=== PATIENT | female | born 1990 | race Caucasian/White ===

== ENCOUNTER 2017-03-06 01:40 | Inpatient (IN) | payer OTHER ==
[2017-03-06] MEDS: DEXTROSE 5%-LACTATED RINGERS 1,000 ML IV SCH ×3 (02:20→06:35)
[2017-03-06 02:49] LABS: BASOPHIL 0.2 % (0-2.0); EOSINOPHIL 2.3 % (0-4.5); MCH 29.9 pg (25.7-33.7); MCHC 33.4 g/dl (32.0-36.0); MEAN CELL VOLUME 89.6 fl (80-96); MEAN PLT VOLUME 10.1 fl (7.5-11.1); NEUTROPHILS 73.3 % (42.8-82.8); PLATELET COUNT 161 K/MM3 (134-434); RDW 14.3 % (11.6-15.6); WHITE BLOOD COUNT 6.2 K/mm3 (4.0-10.0)
[2017-03-06 03:00] LABS: INR 1.05 (0.82-1.09); PROTHROMBIN TIME (PATIENT) 11.6 SEC (9.98-11.88)
[2017-03-06 03:03] LABS: ACTIVATED PTT 28.5 SECONDS (26.9-34.4)
[2017-03-06 03:10] LABS: ANION GAP 9 (8-16); CALCIUM 8.7 mg/dL (8.5-10.1); CO2 23 mmol/L (21-32); CREATININE 0.6 mg/dL (0.55-1.02); GLUCOSE,RANDOM 91 mg/dL (74-106)
[2017-03-06] MEDS ORDERED: PROMETHAZINE HCL 25 MG/1 ML VIAL IVPUSH ONE (04:03)
[2017-03-06] MEDS ORDERED: BUTORPHANOL TARTRATE 1 MG/ML VIAL IVPB ONE (04:03)
[2017-03-06] MEDS ORDERED: SODIUM PHOSPHATE/NA BIPHOS 133 ML ENEMA PR ONE (04:05)
[2017-03-06] MEDS ORDERED: DINOPROSTONE 10 MG VAGINAL SUPPOSITORY VG ONE (04:10)
--- NOTE | 2017-03-06 04:17 | HP ---
Past Medical History - Primary Care Physician PCP:: Valorie Mahoney - Admission Chief Complaint: 26 yrs h/f 40.6/7 weeks srom since 12.00 midnight , no c/ o pain History of Present Illness: PNC at , [facility] wt gain 15 lbs Work Up : A Pos, Rpr nr, Hbsag neg, Quantiferon neg, Rubella pos, Rpr nr, Hiv neg, Gbs neg, , 1 hr gtt 90. NT screen not done . Quad screen neg. MFM growth sono were done Last sono on 03/02/17 , Bpp 8/8, JOEL 16.43cm, EFW 7'14" History Source: Patient, Medical Record Limitations to Obtaining History: No Limitations - Past Medical History Cardiovascular: No: HTN, Murmur Pulmonary: No: Asthma, COPD Gastrointestinal: No: Gastritis, GERD Hepatobiliary: No: Hepatitis B Renal/: No: UTI ...: 1 ...Para: 0 ...EDC by Sono: 02/28/17 (40.6/7 Weeks by Sono ) Infectious Disease: No: AIDS, HIV, STD's Psych: No: Addictions, Anxiety, Bipolar, Depression Endocrine: No: Diabetes Mellitus, Hyperparathyroidism, Hyperthyroidism - Past Surgical History Past Surgical History: Yes: Appendectomy, Cholecystectomy Hx Myomectomy: No Hx Transabdominal Cerclage: No - Smoking History Smoking history: Never smoked - Alcohol/Substance Use Hx Alcohol Use: No History of Substance Use: reports: None Home Medications - Allergies Allergies/Adverse Reactions: Allergies Allergy/AdvReac Type Severity Reaction Status Date / Time No Known Allergies Allergy Verified 02/21/16 18:29 - Home Medications Home Medications: Ambulatory Orders Meclizine HCl [Antivert -] 25 mg PO TID #21 tablet 02/22/16 Physical Exam - Maternity Vital Signs: T98.0, Pulse 97, BP 108/73 Constitutional: Yes: Well Nourished, No Distress Eyes: Yes: WNL HENT: Yes: WNL, Normocephalic Neck: Yes: WNL Cardiovascular: Yes: WNL, Regular Rate and Rhythm Breast(s): Yes: WNL - Abdominal Exam/OB Fundal Height: 40 Number of Fetuses: Single Presentation: Vertex Contractions: No Monitor Mode: External Heart Rate (range): 130-140 Heart Rate Location: Midline Category: I Accelerations: Uniform Decelerations: None - Vaginal Exam/OB Vaginal Bleediing: No Speculum Exam: No Dilatation (cm): close Effacement (%): unefface Amniotic Membrane Status: Ruptured Nitrazine Test: Positive Amniotic Fluid: Yes: Clear Presentation: Vertex/Position Station: -4 - Physical Exam Musculoskeletal: Yes: WNL Extremities: Yes: WNL. No: Calf Tenderness Edema: Yes Edema: LLE: 1+, RLE: 1+ Integumentary: Yes: Tattoos Deep Tendon Reflex Grade: Normal +2 ...Motor Strength: WNL Psychiatric: Yes: WNL, Alert, Oriented - Labs Lab Results: CBC, BMP 03/06/17 02:30 03/06/17 02:30 Laboratory Tests 03/06/17 02:30 INR 1.05 PTT (Actin FS) 28.5 Problem List - Problems (1) Post term over 40 weeks Code(s): O48.0 - POST-TERM (2) SROM (spontaneous rupture of membranes) Code(s): [id number] - Assessment/Plan 26 yrs , 40.6/7 weeks, SROM , not in labor, Gbs neg Plan cervidil insertion at 4.10 AM done trial of labor for vag, del
[2017-03-06 04:44] VITALS: BMI 36.8
[2017-03-06] MEDS ORDERED: CITRIC ACID/SODIUM CITRATE 30 ML UNIT-DOSE CUP PO ONE (11:05)
--- NOTE | 2017-03-06 11:05 | PN ---
Progress Note, Labor Vaginal Exam #1 Labor Exam Date: 03/06/17 Labor Exam Time: 10:45 Heart Rate (range): 130 Dilatation: close Effacement (%): unefface Amniotic Membrane Status: Ruptured (light with particulate) Presentation: Vertex/Position Station: -3 Remarks: fhr cat-1 UC 2-4 min cervidil was expelled out spontaneously pt requests for c/section, she does not wait longer . Selected Entries 03/06/17 10:00 Temperature 98.2 F Pulse Rate 87 Blood Pressure 130/65 plan , preop for c/section awaiting OR availablity
[2017-03-06] MEDS ORDERED: ELECTROLYTE-148 SOLN 1,000 ML IV SCH (11:15)
--- NOTE | 2017-03-06 13:06 | PN ---
Progress Note (short form) - Note Progress Note: Attended C/s at the request of OB Mom 26yrs old with nl labs Was admitted for induction for trial of Vaginal del AROM at 10.30 revealed MSAF- with no progress of dil. delivered by C/S - cried soon after suctioned/ dried cord 3V 9/9 PE: Infant alert active, pink well perfused S1-S2 nl no heart murmur B/L good air entry No organomegaly, Nl female Genitalia, FROM< good tone and activity Term female C/S for MSAF- Failure to progress- Mom wishes RNBC Watch for resp distress Encourage BF/ Bonding
[2017-03-06] MEDS ORDERED: ONDANSETRON 4 MG/2 ML VIAL IVPUSH PRN (13:30)
[2017-03-06] MEDS ORDERED: SENNOSIDES/DOCUSATE COMBO (SENNA PLUS) TABLET (UD) PO PRN (13:37)
[2017-03-06] MEDS ORDERED: METHYLERGONOVINE MALEATE 0.2 MG/1 ML AMP IM PRN (13:37)
--- NOTE | 2017-03-06 13:46 | PN ---
Delivery - Delivery Section: Primary, Low Flap Transverse (Indication 40.6 weeks, meconnium , fetus at risk) Type of Anesthesia: Spinal Episiotomy/Laceration: None EBL (cc): 600 (mims output 100 ml indy color ) Delivery, Single - Stages of Labor Date 1st Stage Initiatied: 03/06/17 Date of Delivery: 03/06/17 Time of Delivery: 12:51 Time Placenta Delivered: 12:52 Placenta: Yes: Manual Removal, Uterine Exploration - Condition of Infant Police Judge/Burial Vault Setter Present: Yes Name: Alexander Christopher Gender: Female Weight: 8 lb 4 oz Position: Left, OT Total Hours ROM (Hrs/Mins): 12hrs 52min - 1 Minute Total Score: 9 5 Minutes Total Score: 9 - Feeding Plan Initial Plan: Exclusive throughout hospitalization Remarks - Remarks Remarks: 26 yrs , 40 .6 weeks admitted for srom not inlabor , GBS neg PNC at 2, [facility] Cervidil inserted for labor induction meconium stained liquor, cervidil expelled, in 7 hrs , pt having uc irregular, cx closed, declined to continue labor induction Intraop course uneventful
[2017-03-06 13:50] LABS: ARTERIAL BLOOD GAS pH 7.26 (7.35-7.45)
[2017-03-06 13:51] LABS: ARTERIAL BLD GAS O2 SATURATION 24.3 % (90-98.9); ARTERIAL BLOOD GAS BASE EXCESS -2.8 meq/l (-2-2); ARTERIAL BLOOD GAS HCO3 24.9 meq/L (22-26); LPM/O2% 21%; PT. ON O2? n
[2017-03-06 13:54] LABS: TYPE OF O2 r/a
--- NOTE | 2017-03-06 13:55 | OP ---
Operative Note - Note: Operative Date: 03/06/17 Pre-Operative Diagnosis: 40.6/7 weeks , SROM , Meconium stained , fetus at risk , requests c/section Operation: Primary LFTC/section Findings: 12.51 PM baby girl, 9/9 , wt 8'4" ,LOT , light meconium stained liquor, Dr Jarquin sports complex attendant present in the room Both tubes & ovaries normal Surgeon: Valorie Mahoney Explosive Ordnance Specialist: Kota Mello Anesthesiologist/GRADES 1 THROUGH 5 TEACHER: Chacho Bello Anesthesia: Spinal Specimens Removed: placenta. cord segment for cord gas. cord blood Estimated Blood Loss (mls): 600 Drains, Volume Out (mls): 100 (mims output anber color ) Fluid Volume Replaced (mls): 1,500 (iv Ancef 1 gm prior to incision given ) Operative Report Dictated: Yes
[2017-03-06 13:56] LABS: ARTERIAL BLOOD GAS PO2 18.3 mmHg (80-100)
[2017-03-06 13:58] LABS: ARTERIAL BLOOD GAS pH 7.31 (7.35-7.45)
[2017-03-06 13:59] LABS: ARTERIAL BLOOD GAS BASE EXCESS -3.2 meq/l (-2-2); ARTERIAL BLOOD GAS HCO3 22.9 meq/L (22-26)
[2017-03-06 14:00] LABS: LPM/O2% 21%; PT. ON O2? no; TYPE OF O2 room air
[2017-03-06] MEDS ORDERED: CEFAZOLIN (PRE-DOCKED) 50 ML IVPB SCH (14:00)
[2017-03-06] MEDS ORDERED: CEFAZOLIN 1 GM/D5W 50 ML IVPB SCH (14:00)
[2017-03-06 14:01] LABS: ARTERIAL BLOOD GAS PO2 22.2 mmHg (80-100)
[2017-03-06 14:02] LABS: ARTERIAL BLD GAS O2 SATURATION 38.8 % (90-98.9)
[2017-03-06] MEDS: D5W-LR W/ 20 UNITS OXYTOCIN 1,000 ML IV SCH ×2 (15:09→20:53)
--- NOTE | 2017-03-06 15:09 | OP ---
DATE OF OPERATION: 03/06/2017 PREOPERATIVE DIAGNOSIS: Forty and 6/7 weeks with spontaneous rupture of membranes, meconium stained fluid . The patient requested section. OPERATION PERFORMED: Primary low-flap transverse section. SURGEON: Valorie Romano MD TERRAZZO LABORER: Kota Booker PA ANESTHESIOLOGIST: Dr. Artis. ANESTHESIA: Spinal. FINDINGS: This is a 26-year-old 1, para 0 presenting with spontaneous rupture of membrane since 12 midnight. Cervix was closed. Cervidil was placed a 4 a.m. until 11 a.m. Cervidil was expelled spontaneously and she has been leaking meconium stain fluid since 7 a.m. The heart rate tracing was grade 1. The patient had contractions between 3 to 5 minutes and irregular. Cervix was still closed posterior and she did not want to continue induction and she refused to continue induction of labor and she requested section. PROCEDURE IN DETAIL: Abdomen was shaved and prepped. Talbot catheter was placed. She was taken to the operating room table. Spinal anesthesia was given. She was placed in supine position. Abdomen was painted and draped in usual manner. Pfannenstiel incision was made. The skin, subcutaneous tissue, anterior rectus sheath were incised transversely. Bleeding points were clamped and cauterized. Rectus muscle was from the rectus sheath. Parietal peritoneum was opened vertically. Bladder peritoneum was incised transversely. Amniotic fluid was meconium stained. Baby girl was delivered from ROT position at 12:51 p.m. was 9 and 9. Cord was clamped, cut and cord segment was sent for cord blood gas and cord blood was collected. The baby was handed over to the drop clipper Dr. Christopher. Baby weight was 8 pounds 4 ounces. Placenta was completely removed with the membranes. Uterine cavity was cleaned. Then the uterine incision was closed in 2 layers with continuous locking suture of Biosyn 0. Second layer was closed with Biosyn 0 intermittent locking sutures were taken. Hemostasis was verified in the lower uterine segment incision and the bladder peritoneum was closed with Biosyn 0 suture. Both tubes and ovaries were normal. Sponge, instrument and needle count was correct. Closure of the abdomen was done. Parietal peritoneum was closed 0 Vicryl suture, continuous sutures were taken and muscles were approximated together with an 0 Vicryl interrupted suture. Hemostasis was checked. Anterior rectus sheath underneath flap hemostasis was checked. Anterior rectus sheath was closed 0 Vicryl continuous suture. Subcutaneous tissue hemostasis was noted and subcutaneous tissue was approximated with interrupted sutures and the skin was approximated with larisa. Pressure dressing was placed. Blood clots were remove from the vagina. Urine output was 100 mL intraoperatively. She received 1 g of IV Ancef prior to the incision. ESTIMATED BLOOD LOSS: 600 mL Corrie [id number] MTDD
[2017-03-06] MEDS: IBUPROFEN 800 MG/8 ML IJ IVPB PRN (15:35)
[2017-03-06] MEDS: CEFAZOLIN (PRE-DOCKED) 50 ML IVPB SCH (20:51)
[2017-03-07] MEDS: IBUPROFEN 800 MG/8 ML IJ IVPB PRN (03:45)
[2017-03-07] MEDS: CEFAZOLIN (PRE-DOCKED) 50 ML IVPB SCH (05:42)
[2017-03-07] MEDS: DEXTROSE 5%-LACTATED RINGERS 1,000 ML IV SCH (05:42)
[2017-03-07 06:59] LABS: BASOPHIL 0.3 % (0-2.0); MCH 29.7 pg (25.7-33.7); MEAN PLT VOLUME 9.8 fl (7.5-11.1); NEUTROPHILS 75.8 % (42.8-82.8); PLATELET COUNT 139 K/MM3 (134-434); WHITE BLOOD COUNT 6.1 K/mm3 (4.0-10.0)
--- NOTE | 2017-03-07 07:53 | PN ---
Post Progress Note - Subjective Subjective: no c/o pain not voided since mims is taken out Post Day: 1 Type of Delivery: Primary C/S Vital Signs: Vital Signs Temperature 98.0 F 03/07/17 05:35 Pulse Rate 92 H 03/07/17 05:35 Respiratory Rate 20 03/07/17 05:51 Blood Pressure 112/67 03/07/17 05:35 O2 Sat by Pulse Oximetry (%) 100 03/06/17 15:15 Breast Exam: Yes: Soft, Other (plans to bF ). No: Engorged Uterus: Yes: Fundus Firm, Fundus below umbilicus Abdomen/GI: Yes: Abdomen soft, Tolerating PO (clear fluid ). No: Abdominal Distention (bs active ) Lochia: Yes: Rubra Lochia, amount: Moderate Extremities: Yes: Calves non-tender Perineum: Yes: Intact Activity: Ambulating - Labs Labs: CBC WBC 6.1 K/mm3 (4.0-10.0) 03/07/17 06:25 RBC 3.49 M/mm3 (3.60-5.2) L 03/07/17 06:25 Hgb 10.4 GM/dL (10.7-15.3) L 03/07/17 06:25 Hct 31.4 % (32.4-45.2) L 03/07/17 06:25 MCV 90.0 fl (80-96) 03/07/17 06:25 MCH 29.7 pg (25.7-33.7) 03/07/17 06:25 MCHC 33.0 g/dl (32.0-36.0) 03/07/17 06:25 RDW 14.0 % (11.6-15.6) 03/07/17 06:25 Plt Count 139 K/MM3 (134-434) 03/07/17 06:25 MPV 9.8 fl (7.5-11.1) 03/07/17 06:25 Neutrophils % 75.8 % (42.8-82.8) 03/07/17 06:25 Lymphocytes % 15.8 % (8-40) 03/07/17 06:25 Monocytes % 6.1 % (3.8-10.2) 03/07/17 06:25 Eosinophils % 2.0 % (0-4.5) 03/07/17 06:25 Basophils % 0.3 % (0-2.0) 03/07/17 06:25 Other Findings, Remarks: RS - CTA i.o adequate Problem List - Problems (1) Post term over 40 weeks Code(s): O48.0 - POST-TERM (2) SROM (spontaneous rupture of membranes) Code(s): [id number] - Assessment/Plan stable plan cbc today pending encourage ambulation encourage deep breathing
[2017-03-07] MEDS: PRENATAL VITAMINS W/ FOLIC ACID TABLET (FP) PO SCH (09:15)
[2017-03-07] MEDS: ENOXAPARIN NA (PORCINE) 40 MG/0.4 ML DISP.SYRIN SQ SCH (09:15)
[2017-03-07] MEDS: ACETAMINOPHEN 325 MG TABLET (FP) PO PRN ×2 (13:23→17:28)
[2017-03-07] MEDS: SIMETHICONE 80 MG TAB.CHEW (FP) PO PRN ×3 (13:23→22:09)
[2017-03-07] MEDS: oxyCODONE HCL 5 MG TABLET PO PRN ×3 (13:23→22:10)
[2017-03-07] MEDS ORDERED: BISACODYL 10 MG SUPP.RECT RC PRN (13:37)
[2017-03-07] MEDS: D5W-LR W/ 20 UNITS OXYTOCIN 1,000 ML IV SCH (15:42)
[2017-03-07] MEDS: FERROUS SO4 325 MG TABLET (FP) PO SCH (22:06)
[2017-03-07] MEDS: IBUPROFEN 600 MG TABLET (FP) PO PRN (22:11)
--- NOTE | 2017-03-08 00:24 | PN ---
Progress Note, Physician Chief Complaint: Pt. ambulating and voiding, pain controlled, no MURPHY. No anesthesia complaints. - Current Medication List Current Medications: Active Medications Acetaminophen (Tylenol -) 650 mg PO Q4H PRN PRN Reason: FEVER OR PAIN Last Admin: 03/07/17 17:28 Dose: 650 mg Bisacodyl (Dulcolax Suppository -) 10 mg RC PRN PRN PRN Reason: CONSTIPATION Diphenhydramine HCl (Benadryl Injection -) 25 mg IVPUSH Q4H PRN PRN Reason: itching Enoxaparin Sodium (Lovenox -) 40 mg SQ DAILY [facility] Last Admin: 03/07/17 09:15 Dose: 40 mg Ferrous Sulfate (Feosol -) 325 mg PO BID [facility] Last Admin: 03/07/17 22:06 Dose: 325 mg Dextrose/Lactated Ringer's (D5-Lr -) 1,000 mls @ 125 mls/hr IV ASDIR [facility] Last Admin: 03/07/17 05:42 Dose: 125 mls/hr Dextrose/Lactated Ringer's (Pitocin 20 Units In D5-Lr -) 1,000 mls @ 125 mls/ hr IV ASDIR [facility] Last Admin: 03/07/17 15:42 Dose: Not Given Ibuprofen (Motrin -) 600 mg PO Q4H PRN PRN Reason: PAIN Last Admin: 03/07/17 22:11 Dose: 600 mg Methylergonovine Maleate (Methergine Injection -) 0.2 mg IM Q4H PRN PRN Reason: Excessive Bleeding (L&D) Oxycodone HCl (Roxicodone -) 5 mg PO Q4H PRN PRN Reason: PAIN LEVEL 1-5 Last Admin: 03/07/17 22:10 Dose: 5 mg Oxycodone HCl (Roxicodone -) 10 mg PO Q4H PRN PRN Reason: PAIN LEVEL 6-10 Last Admin: 03/07/17 17:28 Dose: 10 mg Multivit/Folic Acid/Iron ( Vitamins (Sjr) -) 1 tab PO DAILY [facility] Last Admin: 03/07/17 09:15 Dose: 1 tab Senna/Docusate Sodium (Pericolace -) 2 tablet PO HS PRN PRN Reason: CONSTIPATION Simethicone (Mylicon -) 80 mg PO Q4H PRN PRN Reason: GAS Last Admin: 03/07/17 22:09 Dose: 80 mg - Objective Vital Signs: Vital Signs Temperature 99.4 F 03/07/17 21:47 Pulse Rate 108 H 03/07/17 21:47 Respiratory Rate 20 03/07/17 21:47 Blood Pressure 129/80 03/07/17 21:47 O2 Sat by Pulse Oximetry (%) 100 03/06/17 15:15 Constitutional: Yes: Well Nourished, No Distress, Calm Musculoskeletal: Yes: WNL Neurological: Yes: WNL, Alert, Oriented ...Motor Strength: WNL Labs: CBC, BMP 03/07/17 06:25 03/06/17 02:30 INR, PTT INR 1.05 (0.82-1.09) 03/06/17 02:30 Assessment/Plan POD#1 s/p under spinal with duramorph. Doing well. D/C from anesthesia care.
--- NOTE | 2017-03-08 09:32 | PN ---
Post Progress Note - Subjective Subjective: no comlains painscale 6-03/09 Post Day: 2 Type of Delivery: Primary C/S Vital Signs: Vital Signs Temperature 99.4 F 03/07/17 21:47 Pulse Rate 108 H 03/07/17 21:47 Respiratory Rate 20 03/07/17 21:47 Blood Pressure 129/80 03/07/17 21:47 O2 Sat by Pulse Oximetry (%) 100 03/06/17 15:15 Breast Exam: Yes: Soft, Other (BF ). No: Engorged Uterus: Yes: Fundus Firm, Fundus below umbilicus, Non-tender Incision: Yes: Dressing dry and intact (to be changed ). No: Redness, Oozing Abdomen/GI: Yes: Abdomen soft, Passing flatus (bmdone ), Tolerating PO (diet ). No: Abdominal Distention, Tender Lochia: Yes: Rubra Lochia, amount: Moderate Extremities: Yes: Calves non-tender Perineum: Yes: Intact Activity: Ambulating - Labs Labs: CBC WBC 6.1 K/mm3 (4.0-10.0) 03/07/17 06:25 RBC 3.49 M/mm3 (3.60-5.2) L 03/07/17 06:25 Hgb 10.4 GM/dL (10.7-15.3) L 03/07/17 06:25 Hct 31.4 % (32.4-45.2) L 03/07/17 06:25 MCV 90.0 fl (80-96) 03/07/17 06:25 MCH 29.7 pg (25.7-33.7) 03/07/17 06:25 MCHC 33.0 g/dl (32.0-36.0) 03/07/17 06:25 RDW 14.0 % (11.6-15.6) 03/07/17 06:25 Plt Count 139 K/MM3 (134-434) 03/07/17 06:25 MPV 9.8 fl (7.5-11.1) 03/07/17 06:25 Neutrophils % 75.8 % (42.8-82.8) 03/07/17 06:25 Lymphocytes % 15.8 % (8-40) 03/07/17 06:25 Monocytes % 6.1 % (3.8-10.2) 03/07/17 06:25 Eosinophils % 2.0 % (0-4.5) 03/07/17 06:25 Basophils % 0.3 % (0-2.0) 03/07/17 06:25 Problem List - Problems (1) Post term over 40 weeks Code(s): O48.0 - POST-TERM (2) SROM (spontaneous rupture of membranes) Code(s): XHI1282 - Assessment/Plan stable plan ct po care
[2017-03-08] MEDS: PRENATAL VITAMINS W/ FOLIC ACID TABLET (FP) PO SCH (10:27)
[2017-03-08] MEDS: FERROUS SO4 325 MG TABLET (FP) PO SCH ×2 (10:27→21:14)
[2017-03-08] MEDS: SIMETHICONE 80 MG TAB.CHEW (FP) PO PRN ×4 (10:27→23:31)
[2017-03-08] MEDS: ACETAMINOPHEN 325 MG TABLET (FP) PO PRN ×4 (10:28→23:31)
[2017-03-08] MEDS: oxyCODONE HCL 5 MG TABLET PO PRN ×4 (10:28→23:31)
[2017-03-08] MEDS: ENOXAPARIN NA (PORCINE) 40 MG/0.4 ML DISP.SYRIN SQ SCH (10:30)
[2017-03-09] MEDS: oxyCODONE HCL 5 MG TABLET PO PRN ×3 (07:40→17:04)
[2017-03-09 08:16] LABS: BASOPHIL 0.5 % (0-2.0); EOSINOPHIL 4.7 % (0-4.5); MCH 30.8 pg (25.7-33.7); MCHC 34.2 g/dl (32.0-36.0); MEAN CELL VOLUME 90.2 fl (80-96); MEAN PLT VOLUME 9.3 fl (7.5-11.1); NEUTROPHILS 61.8 % (42.8-82.8); PLATELET COUNT 149 K/MM3 (134-434); RDW 14.4 % (11.6-15.6); WHITE BLOOD COUNT 4.9 K/mm3 (4.0-10.0)
--- NOTE | 2017-03-09 09:13 | DS ---
Physical Exam-ASSISTANT UNIT FORESTER Vital Signs: Vital Signs Temperature 98.0 F 03/08/17 21:13 Pulse Rate 94 H 03/08/17 21:13 Respiratory Rate 20 03/08/17 21:13 Blood Pressure 127/80 03/08/17 21:13 O2 Sat by Pulse Oximetry (%) 100 03/06/17 15:15 Constitutional: Yes: Well Nourished Eyes: Yes: WNL HENT: Yes: WNL, Normocephalic Neck: Yes: WNL Cardiovascular: Yes: WNL, Regular Rate and Rhythm Respiratory: Yes: WNL Gastrointestinal: Yes: WNL, Normal Bowel Sounds, Soft ...Rectal Exam: Yes: WNL Renal/: Yes: WNL, Other (voiding without difficulty) Pelvis: Yes: WNL External Genitalia: Yes: Normal ....Post : Yes: Uterus firm, Uterus non-tender, Moderate lochia rubra Breast(s): Yes: WNL, Left (BF) Musculoskeletal: Yes: WNL Extremities: Yes: WNL. No: Calf Tenderness Edema: Yes Edema: LLE: 1+, RLE: 1+ Integumentary: Yes: Tattoos Wound/Incision: Yes: Clean/Dry, Well Approximated, Heriberto Intact (heriberto removed 03/10/17), Steri Strips (applied 03/10/17 wound edges well approximate d) , Open to air. No: Bleeding, Excoriated Neurological: Yes: WNL, Alert, Oriented ...Motor Strength: WNL Psychiatric: Yes: WNL, Alert, Oriented Labs: CBC, BMP 03/09/17 06:30 03/06/17 02:30 Delivery - Delivery Section: Primary, Low Flap Transverse (Indication 40.6 weeks, meconnium , fetus at risk) Type of Anesthesia: Spinal Episiotomy/Laceration: None EBL (cc): 600 (mims output 100 ml indy color ) Delivery, Single - Stages of Labor Date 1st Stage Initiatied: 03/06/17 Date of Delivery: 03/06/17 Time of Delivery: 12:51 Time Placenta Delivered: 12:52 Placenta: Yes: Manual Removal, Uterine Exploration - Condition of Cosmetology Instructor/Truck Bench Mechanic Present: Yes Name: Alexander Christopher Gender: Female Weight: 8 lb 4 oz Position: Left, OT Total Hours ROM (Hrs/Mins): 12hrs 52min - 1 Minute Total Score: 9 5 Minutes Total Score: 9 - [place] Feeding Plan Initial Plan: Exclusive throughout hospitalization Remarks - Remarks Remarks: 26 yrs , 40 .6 weeks admitted for srom not inlabor , GBS neg PNC at , [facility] Cervidil inserted for labor induction meconium stained liquor, cervidil expelled, in 7 hrs , pt having uc irregular, cx closed, declined to continue labor induction Intraop course uneventful . post op course unevntful will remove heriberto on 03/10/17 will discharge on 03/10/17 Discharge Summary Reason For Visit: LABOR ADMIT Current Active Problems At risk for distress (Acute) Delivery by emergency section (Acute) Meconium in amniotic fluid affecting management of mother, delivered (Acute) Post term over 40 weeks (Acute) SROM (spontaneous rupture of membranes) (Acute) Condition: Stable - Instructions Diet, Activity, Other Instructions: Post Instructions DIET: Continue good diet high in protein, calcium, and iron rich foods. Drink at least eight (8) glasses of water daily in addition to other fluids. ct Regular diet MEDICATIONS: Continue vitamins and iron as previously directed. Motrin and Tylenol may be taken for minor discomfort. ACTIVITY: Mild to moderate exercise may be started in two (2) weeks. Take frequent rest periods. Resume normal activity after six (6) week check up. WOUND CARE OF OPERATIVE SITE: Continue use of perineal bottle until vaginal discharge stops. Keep area clean. Shower daily. Keep abdominal wound dry. Report any drainage or redness to physician. Tub baths, tampons and douches are not permitted for [address] Breast feeding & or Bottle feeding BREAST CARE: (For those that are not ): If engorgement occurs: Wear tight fitting bra. Take Tylenol or Motrin for pain. Apply cold packs (ice in bags to each breast ) FAMILY PLANNING: There are many control alternatives to pursue and they should be discussed at your first office visit. You may resume sexual activity after your six (6) week check up. (Remember, breast feeding is not a contraceptive) NEXT PHYSICIAN APPOINTMENT: Be certain to call for a one (1) week appointment, unless otherwise directed. RTC for wound check Call Clinic or got to Emergency Dept if you have any of the following: Heavy vaginal bleeding Painful urination Leg pain Unusual odor noted to vaginal bleeding High fever Red streaking noted on breast HRH: [phone] Referrals: Valorie Mahoney MD [Staff Physician] - Disposition: HOME - Home Medications Comprehensive Discharge Medication List: Ambulatory Orders Meclizine HCl [Antivert -] 25 mg PO TID #21 tablet 02/22/16 Acetaminophen [Tylenol .Regular Strength -] 650 mg PO Q4H PRN #0 tablet Ferrous Sulfate [Feosol] 325 mg PO BID #60 tab 03/08/17 Ibuprofen [Motrin -] 600 mg PO Q4H PRN #30 tablet 03/08/17 Vitamins (Sjr) - 1 tab PO DAILY tablet 03/08/17
[2017-03-09] MEDS: FERROUS SO4 325 MG TABLET (FP) PO SCH ×2 (10:13→22:00)
[2017-03-09] MEDS: ENOXAPARIN NA (PORCINE) 40 MG/0.4 ML DISP.SYRIN SQ SCH (10:13)
[2017-03-09] MEDS: PRENATAL VITAMINS W/ FOLIC ACID TABLET (FP) PO SCH (10:13)
[2017-03-09] MEDS: SIMETHICONE 80 MG TAB.CHEW (FP) PO PRN ×3 (11:23→21:55)
[2017-03-09] MEDS: ACETAMINOPHEN 325 MG TABLET (FP) PO PRN ×2 (11:23→17:04)
[2017-03-09] MEDS: IBUPROFEN 600 MG TABLET (FP) PO PRN ×3 (11:23→21:53)
[2017-03-10] MEDS: IBUPROFEN 600 MG TABLET (FP) PO PRN (06:21)
[2017-03-10] MEDS: SIMETHICONE 80 MG TAB.CHEW (FP) PO PRN (06:23)
--- NOTE | 2017-03-10 08:55 | PN ---
Post Progress Note - Subjective Subjective: 26 yo Para 1 status post , seen and evaluated. Doing well. She's ready to be discharge. Type of Delivery: Primary C/S Vital Signs: Vital Signs Temperature 97.6 F 03/09/17 22:00 Pulse Rate 79 03/09/17 22:00 Respiratory Rate 20 03/09/17 22:00 Blood Pressure 118/66 03/09/17 22:00 O2 Sat by Pulse Oximetry (%) 100 03/09/17 21:00 Uterus: Yes: Fundus Firm Incision: Yes: Other (Heriberto removed) Abdomen/GI: Yes: Abdomen soft, Tolerating PO Lochia: Yes: Rubra Lochia, amount: Small Extremities: Yes: Calves non-tender Perineum: Yes: Intact Activity: Ambulating - Labs Labs: CBC WBC 4.9 K/mm3 (4.0-10.0) 03/09/17 06:30 RBC 3.36 M/mm3 (3.60-5.2) L 03/09/17 06:30 Hgb 10.4 GM/dL (10.7-15.3) L 03/09/17 06:30 Hct 30.3 % (32.4-45.2) L 03/09/17 06:30 MCV 90.2 fl (80-96) 03/09/17 06:30 MCH 30.8 pg (25.7-33.7) 03/09/17 06:30 MCHC 34.2 g/dl (32.0-36.0) 03/09/17 06:30 RDW 14.4 % (11.6-15.6) 03/09/17 06:30 Plt Count 149 K/MM3 (134-434) 03/09/17 06:30 MPV 9.3 fl (7.5-11.1) 03/09/17 06:30 Neutrophils % 61.8 % (42.8-82.8) 03/09/17 06:30 Lymphocytes % 25.2 % (8-40) D 03/09/17 06:30 Monocytes % 7.8 % (3.8-10.2) 03/09/17 06:30 Eosinophils % 4.7 % (0-4.5) H D 03/09/17 06:30 Basophils % 0.5 % (0-2.0) 03/09/17 06:30 Assessment/Plan Status post primary Stable D/C Home
[2017-03-10] MEDS: PRENATAL VITAMINS W/ FOLIC ACID TABLET (FP) PO SCH (10:12)
[2017-03-10] MEDS: ENOXAPARIN NA (PORCINE) 40 MG/0.4 ML DISP.SYRIN SQ SCH (10:12)
[2017-03-10] MEDS: FERROUS SO4 325 MG TABLET (FP) PO SCH (10:12)
[2017-03-10 13:31] VITALS: BP 124/75; PULSE 85; TEMP 98.4
--- NOTE | 2017-03-12 14:23 | PATH ---
Surgical Pathology Report Patient Name: EULALIO OAKES [facility]. Rec. #: [id number] /Age/Gender: 1990 (Age: 26) / F Account: [id number] Location: [facility] OBS/APPLICATIONS SPECIALIST Taken: 03/06/2017 Received: 03/09/2017 Reported: 03/12/2017 Physicians: Valorie Mahoney M.D. Specimen(s) Received PLACENTA Clinical History 40.6 weeks' gestation with ruptured membranes, no dilatation Final Diagnosis PLACENTA, DELIVERY: FOCALLY DISRUPTED THIRD TRIMESTER PLACENTA WITH SUBCHORIONIC FIBRIN DEPOSITION WITH ASSOCIATED CALCIFICATION, THREE VESSEL UMBILICAL CORD AND MECONIUM HISTIOCYTOSIS OF PLACENTAL MEMBRANES. Electronically Signed Tl Garcia M.D. Gross Description The specimen is received fresh labeled placenta and is a 466 gram, 17.5 x 16.0 x 2.6 cm. placenta with attached membranes and umbilical cord. The attached membranes are lee, translucent with focal opacities and insert marginally. The umbilical cord measures 21 cm. in length and averages 1.1 cm. in diameter. The cord inserts eccentrically, 2.5 cm. to the nearest margin. No true knots or strictures are identified. Cut surface of the umbilical cord reveals 3 vessels. The surface is baumann green, meconium stained with moderate fibrin deposition and appropriate caliber vessels. The maternal surface is red-brown with focal defects. Sectioning reveals red-brown, spongy parenchyma. No lesions are identified. Personal Lines Account Manager sections are submitted in three cassettes as follows: 1- membrane rolls and umbilical cord; 2-3- full thickness sections of placenta. 03/11/201703/11/2017
== END 2017-03-10 13:10 | disposition home or self-care (01) | DRG 540 ==
LOC: JLDR 01:40 → J3W 15:16
PROVIDERS: ADMIT Obstetrics & Gynecology; ATTEND Obstetrics & Gynecology
PROC: 10D00Z1 Extraction of Products of Conception, Low, Open Approach (ICD-10-PCS; principal; 2017-03-06)
PROC: 3E0P7GC Introduction of Other Therapeutic Substance into Female Reproductive, Via Natural or Artificial Opening (ICD-10-PCS; 2017-03-06)
DX: O48.0 Post-term pregnancy (principal); Z3A.40 40 weeks gestation of pregnancy; Z37.0 Single live birth
CPT/HCPCS: 36415; 36600; 80048; 82803; 85025; 85610; 85730; 86593; 86850; 86900; 86901; 88307-TC

== ENCOUNTER 2019-02-26 22:07 | Emergency (ER) | payer OTHER ==
[2019-02-26 22:16] VITALS: BP 118/78; PULSE 88; TEMP 98; BMI 39.4
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
[2019-02-26] MEDS ORDERED: KETOROLAC TROMETHAMINE 60 MG/2 ML VIAL IM ONE (22:40)
[2019-02-26] MEDS ORDERED: METHOCARBAMOL 500 MG TABLET PO ONE (22:40)
[2019-02-26] MEDS ORDERED: KETOROLAC TROMETHAMINE 60 MG/2 ML VIAL ONE (22:41)
[2019-02-26] MEDS ORDERED: METHOCARBAMOL 500 MG TABLET ONE (22:42)
== END 2019-02-26 23:12 | disposition home or self-care (01) ==
LOC: JERFT 22:07 → JER 22:07 → JERFT 23:12
PROC: 3E0233Z Introduction of Anti-inflammatory into Muscle, Percutaneous Approach (ICD-10-PCS; principal; 2019-02-26)
DX: M25.529 Pain in unspecified elbow (principal); M54.5 Low back pain; S13.4XXA Sprain of ligaments of cervical spine, initial encounter; V43.52XA Car driver injured in collision with other type car in traffic accident, initial encounter; Y92.411 Interstate highway as the place of occurrence of the external cause; Y93.89 Activity, other specified; Y99.8 Other external cause status
CPT/HCPCS: 72050-TC-FY; 72100-TC-FY; 99281-25

== ENCOUNTER → 2020-06-04 | Day surgery (SDC) | payer OTHER ==
--- OUTSIDE RECORDS SUMMARY | 2020-06-04 12:01 | XMS ---
:1990 [facility] Name Relationship Address Phone JAQUELINE Unavailable Unavailable Unavailable SEARS Unavailable [place] [address] [place] [address] [place] Unavailable [address] [phone] [place] [address] THERESA OAKES MOTHER [address] [place] [address] Re-disclosure Warning The records that you are about to access may contain information from federally- assisted alcohol or drug abuse programs. If such information is present, then the following federally mandated warning applies: This information has been disclosed to you from records protected by federal confidentiality rules (42 CFR part 2). The federal rules prohibit you from making any further disclosure of this information unless further disclosure is expressly permitted by the written consent of the person to whom it pertains or as otherwise permitted by 42 CFR part 2. A general authorization for the release of medical or other information is NOT sufficient for this purpose. The Federal rules restrict any use of the information to criminally investigate or prosecute any alcohol or drug abuse patient.The records that you are about to access may contain highly sensitive health information, the redisclosure of which is protected by Article 27-F of the [facility] Public Health law. If you continue you may haveaccess to information: Regarding HIV / AIDS; Provided by facilities licensed or operated by the [facility] Office of Mental Health; or Provided by the [facility] Office for People With Developmental Disabilities. If such information is present, then the following [facility] mandated warning applies: This information has been disclosed to you from confidential records which are protected by state law. State law prohibits you from making any further disclosure of this information without the specific written consent of the person to whom it pertains, or as otherwise permitted by law. Any unauthorized further disclosure in violation of state law may result in a fine or detention sentence or both. A general authorization for the release of medical or other information is NOT sufficient authorization for further disclosure. Insurance Providers Payer name Policy type Policy ID Covered Covered democrat's Policy P dominick / Coverage democrat ID relationship to [facility] ormation type lewis [facility] [id number] SP [id number] PLANS MEDICAID [id number] SP [id number] [facility] [id number] SP [id number] [employer] PPO [id number] SP [id number] [facility] [id number] SP [id number] NON CAP [facility] [id number] SP [id number] PLAN MEDICAID [id number] SP [id number] [facility] [id number] SP [id number] [facility] [id number] SP [id number] [facility]
--- NOTE | 2020-06-05 17:31 | PATH ---
Surgical Pathology Report Patient Name: EULALIO OAKES [facility]. Rec. #: [id number] /Age/Gender: 1990 (Age: 30) / F Account: [id number] Location: MAMMOGRAPHY- [facility] Taken: 06/04/2020 Received: 06/04/2020 Reported: 06/05/2020 Physicians: Corrie Nair M.D. Specimen(s) Received A: BREAST RIGHT, 9:00, 4.8 CM, RETROAREOLAR, AREA OF MASS LIKE FIBROCYSTIC CHANGES, ULTRASOUND GUIDED CORE BIOPSY B: BREAST, LEFT, 12:30, RETROAREOLAR MASS, ULTRASOUND GUIDED CORE BIOPSY C: BREAST, LEFT, 1:00, SUPERFICIAL MASS, ULTRASOUND GUIDED CORE BIOPSY D: BREAST, LEFT, 9:00, ECHOGENIC MASS, ULTRASOUND GUIDED CORE BIOPSY Clinical History Nonpalpable lesion Ultrasound findings: Probably benign, suspicious Final Diagnosis A. BREAST RIGHT, 9:00, 4.8 CM, RETROAREOLAR, AREA OF MASS LIKE FIBROCYSTIC CHANGES, ULTRASOUND GUIDED CORE BIOPSY: BENIGN BREAST PARENCHYMA WITH FIBROCYSTIC CHANGES INCLUDING STROMAL FIBROSIS, APOCRINE METAPLASIA, USUAL DUCTAL HYPERPLASIA, RARE MICROCYSTS, AND FOCAL MILD PERIDUCTAL CHRONIC INFLAMMATION. B. BREAST, LEFT, 12:30, RETROAREOLAR MASS, ULTRASOUND GUIDED CORE BIOPSY: BENIGN BREAST PARENCHYMA WITH DENSE STROMAL FIBROSIS, FEW MICROCYSTS, FOCAL APOCRINE METAPLASIA, USUAL DUCTAL HYPERPLASIA, AND FOCAL MILD PERIDUCTAL CHRONIC INFLAMMATION. C. BREAST, LEFT, 1:00, SUPERFICIAL MASS, ULTRASOUND GUIDED CORE BIOPSY: BENIGN BREAST PARENCHYMA WITH DENSE FIBROSIS AND FOCAL USUAL DUCTAL HYPERPLASIA. D. BREAST, LEFT, 9:00, ECHOGENIC MASS, ULTRASOUND GUIDED CORE BIOPSY: BENIGN BREAST PARENCHYMA WITH STROMAL FIBROSIS AND USUAL DUCT HYPERPLASIA. Electronically Signed Calli Pearce M.D. Gross Description A. Received in formalin labeled "right 9:00," are 5 lee-yellow, cylindrical portions of fibroadipose tissue ranging from 0.2-1.1 cm in length and averaging 0.1 cm in diameter. The specimens are submitted in toto in one cassette. B. Received in formalin labeled "left 12:30," are 3 lee-yellow, cylindrical portions of fibroadipose tissue ranging from 0.7-1.1 cm in length and averaging 0.1 cm in diameter. The specimens are submitted in toto in one cassette. C. Received in formalin labeled "left 1:00," are 3 lee-yellow, cylindrical portions of fibroadipose tissue ranging from 0.7-1.2 cm in length and averaging 0.1 cm in diameter. The specimens are submitted in toto in one cassette. D. Received in formalin labeled "left 9:00," are 2 lee-yellow, cylindrical portions of fibroadipose tissue measuring 0.8 and 1.0 cm in length and averaging 0.1 cm in diameter. The specimens are submitted in toto in one cassette. Time to formalin fixation: Less than one minute Total formalin fixation time: Approximately 6 hours. 06/04/2020 kitty06/04/2020
== END | disposition home or self-care (01) ==
LOC: JMAMMO-SUR 11:42
PROVIDERS: ATTEND Physician Assistant Surgical
PROC: 0H9V3ZX Drainage of Bilateral Breast, Percutaneous Approach, Diagnostic (ICD-10-PCS; principal; 2020-06-04)
DX: N60.32 Fibrosclerosis of left breast (principal); N60.31 Fibrosclerosis of right breast; N62 Hypertrophy of breast
CPT/HCPCS: 19083; 19084; 87899; 88305-TC; A4648